=== PATIENT | female | born 1985 | race Caucasian/White ===

== ENCOUNTER 2020-01-26 21:40 | Emergency (ER) | payer OTHER ==
[~2020-01-26] VITALS: Ht 170.2 cm; Wt 56.7 kg
[2020-01-26 21:42] VITALS: BP 116/71
--- NOTE | 2020-01-26 21:46 | NUR ---
PT TAKEN TO BED 12 VIA [facility] WITH ASSISTANCE FROM EMS.
--- NOTE | 2020-01-26 21:50 | NUR ---
34 Y/O FEMALE BIBA FOR C/O DIZZYNESS X 30 MIN AGO AT [facility]. PER EMS PT ADMITS TO HAVING 1/2 GLASS OF [place]. PT IS A/OX4, CALM AND PLEASANT. LAYING IN BED AT THIS TIME IN NO ACUTE DISTRESS NOTED. BREATHING EVEN AND UNLABORED. GRIB STRENGTH IS STRONG BILATERALLY, FACIAL SYMMETRY NOTED. SPEECH IS CLEAR AND INTACT. REPORTS HAVING 5 HEAD INJURIES IN THE PAST. SHE STATES THAT HER MAJOR INJURY OCCURED "WHILE DANCING [place]" 9 YEARS AGO. PREVIOUS 4 INJURIES OCCURED IN HIGH [employer]CHOOL PER PT WHILE PLAYING [employer]CC[employer]. SECONDARY C/O URINARY BURNING X 4 DAYS WITH PELVIC PAIN 3/10. DENIES HAVING ANY FOUL SMELL OR BLEEDING NOTED AT SITE. PT PLACED ON LOOP TACKER AND BED LOCKED AND IN LOWEST POSITION. MEDHX: CONCUSIONS ALLERGIES: NKA
--- NOTE | 2020-01-26 21:55 | NUR ---
PT AMBUALTED TO RESTROOM WITH STEADY GAIT. UA PROVIDED.
[2020-01-26] MEDS ORDERED: NACL 0.9% 1,000 ML IV ONE (22:00)
--- NOTE | 2020-01-26 22:04 | NUR ---
ERMD AT BEDSIDE.
--- NOTE | 2020-01-26 22:06 | NUR ---
EKG BEING PERFORMED AT BEDSIDE.
--- NOTE | 2020-01-26 22:15 | NUR ---
LAB AT BEDSIDE.
[2020-01-26 22:32] LABS: BASOPHILS % (AUTO) 0.3 % (0.0-2.0); EOSINOPHILS % (AUTO) 0.3 % (0.0-4.0); HEMATOCRIT 41.9 % (36-48); LYMPHOCYTES # (AUTO) 3.4 K/uL (2.5-16.5); LYMPHOCYTES % (AUTO) 41.4 % (20.5-51.1); MEAN CORPUSCULAR HEMOGLOBIN 28 pg (27-31); MEAN CORPUSCULAR HGB CONC 34 g/dL (33-37); MONOCYTES # (AUTO) 0.5 K/uL (0.8-1.0); NEUTROPHILS # (AUTO) 4.3 K/uL (1.8-7.7); PLATELET COUNT (AUTO) 204 K/uL (140-450); RED BLOOD CELL COUNT(AUTO) 4.99 MIL/uL (4.20-5.40); RED CELL DISTRIBUTION WIDTH 13.2 % (11.6-13.7); WHITE BLOOD COUNT (AUTO) 8.3 K/uL (4.8-10.8)
[2020-01-26 22:43] LABS: APPEARANCE,URINE SL CLOUDY (CLEAR); BILIRUBIN,URINE NEGATIVE (NEGATIVE); BLOOD, URINE 1+ (NEGATIVE); COLOR,URINE YELLOW (YELLOW); LEUKOCYTE ESTERASE ,URINE 1+ (NEGATIVE); NITRITE, URINE POSITIVE (NEGATIVE); PH,URINE 6.5 (5.0-9.0); UGLUCOSE NEGATIVE (NEGATIVE)
[2020-01-26 22:51] LABS: ALBUMIN 4.4 g/dL (3.4-5.0); ANION GAP 16.5 (8-16); CARBON DIOXIDE 25.3 mmol/L (21-32); CREATININE 0.9 mg/dL (0.6-1.3); POTASSIUM 3.8 mmol/L (3.5-5.1); TOTAL BILIRUBIN 0.4 mg/dL (0.0-1.0)
[2020-01-26 22:54] LABS: RBC,URINE 0-5 /HPF (0-5); WBC,URINE 20-60 /HPF (0-5)
[2020-01-26] MEDS ORDERED: cefTRIAXone 1,000 MG VIAL ONE (23:39)
--- NOTE | 2020-01-27 00:50 | NUR ---
IV removed, catheter intact and site benign. Applied folded 4x4 gauze and tape to stop bleeding.
[2020-01-27 00:55] VITALS: BP 105/59
== END 2020-01-27 00:55 | disposition home or self-care (01) ==
LOC: MED 21:40
DX: R55 Syncope and collapse (principal); N39.0 Urinary tract infection, site not specified; E86.0 Dehydration
CPT/HCPCS: 36415; 80053; 81001; 81025; 84484; 85025; 87086; 93005; 96361; 96365; 99284; J0696; J7030